=== PATIENT | female | born 2000 | race Caucasian/White ===

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

== ENCOUNTER 2019-12-20 09:56 | Emergency (ER) | payer MEDICAID, SELFPAY ==
[2019-12-20 10:01] VITALS: BP 141/79; PULSE 83; RESP 16; TEMP 36.9; O2SAT 98; BMI 25.0
--- NOTE | 2019-12-20 10:16 | XR_ITS ---
PROCEDURE: XR KNEE RT 3V CLINICAL INDICATION: pain Twisting injury with pain and swelling COMPARISON: No exams were available for comparison FINDINGS: No fracture or dislocation. No lytic or blastic change. There is normal mineralization. The joint spaces are well-preserved. No significant degenerative/arthritic changes. No erosive changes evident. Other findings:Suspect a small suprapatellar effusion. IMPRESSION: Small suprapatellar effusion otherwise negative Dictated by: Elliot Tillman MD 12/20/2019 11:57 Electronically signed by Elliot Tillman MD in [place] 12/20/2019 11:57
--- NOTE | 2019-12-20 10:17 | PC.NURSE ---
notified rad of order, spoke with merrick
--- NOTE | 2019-12-20 11:12 | HMH.EDGENADL ---
ED Disposition Clinical Impression: Lateral collateral ligament sprain of knee Disposition: Home, Self-Care Condition on Discharge: Good Instructions: DI for Acute Pain -- Adult Referrals: Provider,Referral, [Primary Care Provider] - - Critical Care Critical Care Time: No Attestation: On 12/20/19, the high probability of a clinically significant, sudden or life threatening deterioration of the following system(s) required my full and direct attention, intervention and personal management. The time I documented below is in addition to time spent performing reported procedures but includes the following listed in this critical care notation. Medical Decision Making - Medical Records Medical records reviewed: Yes: I reviewed the patient's medical records. - Josafat Inquiry Pt receiving controlled substance: No Vital Signs: 12/20/19 10:01 Temperature 98.4 F Temperature Source Oral Pulse Rate [Right Radial] 83 Respiratory Rate 16 Blood Pressure [Right Arm] 141/79 H Blood Pressure Mean [Right Arm] 99 Blood Pressure Source [Right Arm] Automatic Cuff Blood Pressure Position [Right Arm] Sitting 02 Sat by Pulse Oximetry 98 Oxygen Delivery Method Room Air - Lab Data Lab results reviewed: Yes: I reviewed the patient's lab results. Orders (Tests/Meds): ORDERS Category Date Time Status XR knee RT 3V Stat Exams 12/20/19 10:16 Taken General Adult HPI - General Chief complaint: PAIN Stated complaint: AO [id number] right knee pain Time Seen by Provider: 12/20/19 11:12 Mode of Arrival: Ambulatory Source of Information: Patient Limitations: No Limitations Description of Symptoms (Recalled from ER Triage Doc. by RN): Pt c/o R knee pain, pt reports she twisted her knee approx 1 week ago. Pt reports increasing pain x1 week, reports swelling of R knee today. - History of Present Illness Onset (ago): day(s) Location: lower extremity Radiation: non-radiation Severity: moderate Severity scale (1-10): 3 Quality: stabbing Consistency: constant Relieving factors: cold therapy, rest Exacerbating factors: movement Associated symptoms: denies other symptoms - Related Data Home Medications Medication Instructions Recorded Confirmed albuterol sulfate 90 mcg/actuation 2 puff INHALATION Q6H PRN 09/24/18 09/24/18 aerosol inhaler escitalopram oxalate 10 mg tablet 10 mg PO DAILY 09/24/18 09/24/18 etonogestrel 68 mg subdermal SUBDERMAL each 09/24/18 09/24/18 implant Allergies Allergy/AdvReac Type Severity Reaction Status Date / Time No Known Allergies Allergy Unverified 09/24/18 11:20 [facility] History - Hepatitis A Screen Drug use history?: No High risk sexual behaviors?: No History of sexually transmitted infection?: No Currently employed?: No Childcare worker?: No Do you have indoor plumbing?: Yes Do you have electricity?: Yes Attestation statement:: This patient has been screened for Hepatitis A risk factors. I have reviewed the patient's past medical history: Yes Medical History: Reports:: Asthma Amputation: No Fractures: No - Social History Smoking Status: Current every day smoker Alcohol Intake: never Occupational Status: employed Family Hx:: No significant family history ROS Obtained: Yes All systems reviewed & no additional complaints - Constitutional Constitutional: Reports system reviewed and no additional complaints, except as docu - Eyes Eyes: Reports system reviewed and no additional complaints, except as docu - ENT Ears, Nose, Mouth, and Throat: Reports system reviewed and no additional complaints, except as docu - Cardiovascular Cardiovascular: Reports system reviewed and no additional complaints, except as docu - Respiratory Respiratory: Yes system reviewed and no additional complaints, except as docu - Gastrointestinal Gastrointestingal: Reports: system reviewed and no additional complaints, except as docu - Genitourinary Male Genitourinary
[2019-12-20 11:25] VITALS: BP 122/87; PULSE 87; RESP 20; TEMP 36.8; O2SAT 98
== END 2019-12-20 11:26 | disposition home or self-care (01) ==
PROVIDERS: Emergency Provider Family Medicine
DX: S83.421A Sprain of lateral collateral ligament of right knee, initial encounter (principal); X50.1XXA Overexertion from prolonged static or awkward postures, initial encounter; Y92.019 Unspecified place in single-family (private) house as the place of occurrence of the external cause
CPT/HCPCS: 73562; 99282

== ENCOUNTER 2021-12-11 14:59 | Emergency (ER) | payer OTHER, SELFPAY ==
[2021-12-11 15:01] VITALS: BP 123/65; PULSE 107; RESP 16; TEMP 37.1; O2SAT 98; BMI 18.8
--- NOTE | 2021-12-11 15:25 | PC.NURSE ---
Spoke with [facility] about getting records faxed to us regarding patient's discharge summary, operative report and any scans the patient had while she was at for her procedure on 12/02. Faxed over cover sheet to [facility], awaiting records to be faxed back at this time.
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
--- NOTE | 2021-12-11 17:00 | PC.NURSE ---
patient is in room resting in bed, hooked up to vital signs. Family member is bedside.
[2021-12-11 17:30] VITALS: BP 123/74; PULSE 78; RESP 16; TEMP 36.6; O2SAT 98
== END 2021-12-11 17:32 | disposition home or self-care (01) ==
PROVIDERS: Emergency Provider Student in an Organized Health Care Education/Training Program; PCP Nurse Practitioner
DX: M79.605 Pain in left leg (principal); Z86.718 Personal history of other venous thrombosis and embolism; Z98.890 Other specified postprocedural states; Z79.3 Long term (current) use of hormonal contraceptives; Z79.899 Other long term (current) drug therapy; Z72.0 Tobacco use
CPT/HCPCS: 99282

== ENCOUNTER 2022-01-03 15:00 | Outpatient (RCR) | payer OTHER, SELFPAY | END 2022-02-08 09:23 | disposition home or self-care (01) | LOC: PT.CARL 15:00 | PROVIDERS: PCP Nurse Practitioner; Visit Provider Clinical Nurse Specialist Family Health | DX: Z98.1 Arthrodesis status (principal); M54.6 Pain in thoracic spine | CPT/HCPCS: 97010; 97014; 97110; 97140; 97163; G0283 ==

== ENCOUNTER 2023-09-26 15:46 | Outpatient (CLI) | payer OTHER, SELFPAY ==
[2023-09-26 16:47] LABS: Basophils # 0.1 K/mm3 (0-0.2); Eosinophils # 0.4 K/mm3 (0.0-0.4); Eosinophils % 5.3 % (0.1-12.0); Hematocrit 42.1 % (37.0-47.0); Hemoglobin 13.6 g/dL (12.2-16.2); Lymphocytes # 2.8 K/mm3 (0.7-4.5); Lymphocytes % 33.8 % (10-50); Mean Corpuscular HGB Conc 32.3 g/dL (31.8-35.4); Mean Corpuscular Hemoglobin 31.9 pg (27.0-31.2); Mean Corpuscular Volume 98.8 fl (81-99); Mean Platelet Volume 7.4 fl (7.4-10.4); Monocytes # 0.5 K/mm3 (0.1-1.0); Monocytes % 5.9 % (1.7-9.3); Neutrophils # 4.4 K/mm3 (1.8-7.8); Platelet Count 445 K/mm3 (142-424); Red Blood Count 4.26 M/mm3 (4.20-5.40); Red Cell Distribution Width 13.6 % (11.5-17.5); White Blood Count 8.2 K/mm3 (4.8-10.8)
[2023-09-26 17:24] LABS: Chloride 104 mmol/L (98-107); Potassium 4.4 mmoL/L (3.5-5.1); Sodium 137 mmol/L (136-145)
[2023-09-26 17:26] LABS: Alanine Aminotransferase 11 U/L (12-78); Alkaline Phosphatase 61 U/L (38-126); Anion Gap 8.4 mEq/L (5-15); Aspartate Amino Transferase 22 U/L (14-36); Bilirubin,Direct 0.2 mg/dl (0.0-0.4); Bilirubin,Total 0.2 mg/dl (0.2-1.3); Blood Urea Nitrogen 9 mg/dl (7-17); Carbon Dioxide 29 mmol/L (22.0-30.0); Estimated Glomerular Filt Rate 123 ml/min (>60); GFR (African American) 149 ML/MIN (>60)
[2023-09-26 17:27] LABS: Albumin Level 4.3 g/dl (3.5-5.0); Calcium 9.5 mg/dl (8.4-10.2); Chol/HDL Ratio 2.5 (1-3.5); Cholesterol 105 mg/dl (140-200); Glucose 81 mg/dl (74-100); HDL Cholesterol 42 mg/dl (40-60); Magnesium 2.1 mg/dl (1.6-2.3); Total Protein,Serum 6.6 g/dl (6.3-8.2); Triglycerides 188 mg/dl (30-150); VLDL Cholesterol 38 mg/dL (0-40)
[2023-09-26 17:44] LABS: Direct LDL Cholesterol 45.27 mg/dL (100-129); Free T4 (Free Thyroxine) 0.98 ng/dl (0.78-2.19)
[2023-09-26 17:59] LABS: Thyroid Stimulating Hormone 0.26 uIU/mL (0.465-4.68)
== END 2023-09-26 23:59 ==
LOC: LAB 15:47
PROVIDERS: PCP Nurse Practitioner; Visit Provider Nurse Practitioner
DX: R55 Syncope and collapse (principal); F19.10 Other psychoactive substance abuse, uncomplicated; Z86.79 Personal history of other diseases of the circulatory system; Z79.899 Other long term (current) drug therapy
CPT/HCPCS: 36415; 80048; 80061; 80076; 83735; 84439; 84443; 85025; 93270

== ENCOUNTER 2023-10-06 08:33 | Outpatient (CLI) | payer OTHER, SELFPAY ==
--- NOTE | 2023-10-06 08:37 | CA_ITS ---
APPROVED REPORT EXAM: Comprehensive 2D, Doppler, and color-flow Echocardiogram Ripsaw Matcher: Izabela Haney CRT Ht: 5 ft 6 in Wt: 136lbs BSA: 1.70 BP: 134/70 mmHg Indications: TACHYCARDIA ,Former drug use, smoker, sob,syncope 2D Dimensions LA Volume 18.40 mL LA Volume Index 10.60 mL/m2 (M/F) 16-34 M-Mode Dimensions RVDd 2.50 cm (0.9-2.6) LA Diam 2.81 cm (1.9-4.0) LVDd 4.22 cm (3.5-5.7) LVDs 2.61 cm (3.5-5.7) IVSd 1.13 cm (0.6-1.1) PWd 1.05 cm (0.6-1.1) EF (Teich) 68.80% FS 38.20% EDV (Teich) 79.50 mL TAPSE 1.61 (<1.7) ESV (Teich) 24.80 mL LV Diastology E Decel Time 163 (160-240 msec) E/A Ratio 1.44 MED A' 4.90 cm/s LAT A' 3.60 cm/s Aortic Valve AO Peak GR. 4.00 mmHg Mitral Valve MV E Max Veto. 74.0 (40-130 cm/s) MV A Velocity 51.0 (40-130 cm/s) E/A Ratio 1.44 MV PHT 48.0 ms Pulmonary Valve PV Peak Velocity 90.0 (50-150 cm/s) Tricuspid Valve TR P. Velocity 123.00 cm/s RAP Estimate 10.00 mmHg RVSP 16.10 mmHg Left Ventricle The left ventricle is normal size. The left ventricular systolic function is normal. The left ventricular ejection fraction is within the normal range. There is normal left ventricular wall thickness. There is normal LV segmental wall motion. The left ventricular diastolic function is normal. LVEF is 55%. Right Ventricle The right ventricle is normal size. The right ventricular systolic function is normal. Atria The left atrium size is normal. The right atrium size is normal. There is no Doppler evidence of interatrial shunt. Aortic Valve The aortic valve opens well. There is no aortic valvular stenosis. No aortic regurgitation is present. Mitral Valve The mitral valve is normal in structure. No evidence of mitral valve stenosis. There is no mitral valve regurgitation noted. Tricuspid Valve The tricuspid valve leaflets are thin and pliable. Trace tricuspid regurgitation. There is insufficient TR jet to estimate RVSP. Pulmonic Valve The pulmonary valve is normal in structure. Trace pulmonic regurgitation. Great Vessels The aortic root is normal in size. The ascending aorta is normal in size. IVC is normal in size and collapses >50% with inspiration. Pericardium There is no pericardial effusion. Other Information Study Quality: Fair Conclusion Normal biventricular systolic function. No significant valvular stenosis or regurgitation. Electronically signed by : Allyn Morel MD 10/09/2023 10:18:51
[2023-10-06 09:16] VITALS: BMI 21.7
[2023-10-06] MEDS: IVABRADINE HCL 7.5MG TABLET PO (09:31)
[2023-10-06] MEDS: METOPROLOL TARTRATE 50MG TABLET PO ×2 (09:32→10:32)
[2023-10-06] MEDS: METOPROLOL TARTRATE 25MG TABLET 25 MG (10:32)
--- NOTE | 2023-10-06 10:55 | CT_ITS ---
APPROVED REPORT Rail Express Clerk: CLINICAL INDICATION Chest Pain TECHNIQUE Image Acquisition: A 128 slice MDCT scanner (PDVa View) was used for data acquisition. A noncontrast coronary calcium scan was performed. A CT attenuation threshold of 130 Hounsfield units (HU) was used for the detection of calcium in contiguous voxels of 1 sq mm in area to be counted as individual lesions. Bolus tracking in the ascending aorta with a threshold of 180 HU was performed. Immediately afterwards, ECG synchronized cardiac CT was then performed from the cardiac base to apex using retrospective gating with ECG tube current modulation. A total of 85 mL of Isovue 370 mg/mL contrast medium was administered at 5 mL/sec followed by a saline flush using a biphasic injection protocol. A tube voltage of 120 KVp was used. The patient received the following medications prior to the cardiac CT. 125 mg of oral metoprolol 15 mg of oral ivabradine 0.8 mg of sublingual nitroglycerin The average heart rate at the time of acquisition was 67 bpm and regular. Image Reconstruction Transaxial images were reconstructed at 0.67 mm slide thickness. Data was reviewed interactively on an advanced workstation capable of 2 and 3-dimensional displays in all conventional reconstruction formats, including multiplanar reformations, maximum intensity projections, curved multiplanar reformations, and volume rendered reconstructions. When applicable, selected routine images describing the relevant coronary anatomy and pathology were saved and sent to PACS. Complications None Technical Quality Overall image quality was good. Coronary artery opacification was adequate. Total DLP (Dose-Length Product) is 1351.3 mGy-cm. The reported value represents the total of one or more individual components during the CT acquisition of this date and at this time, and as such, the same value may appear in more than one CT report depending on the interpreting/reporting physicians. COMPARISON None FINDINGS CT Coronary Calcium Scoring LMA (Left Main Artery) = 0 LAD (Left Anterior Descending) = 0 LCX (Left Coronary Circumflex) = 0 RCA (Right Coronary Artery) = 0 Total Calcium Score = 0 using the AJ-130 method. The interpretation of the calcium heart score is based on the following continuum*: 0 = no calcified plaque detected (risk of coronary artery disease is very low ??? less than 5%) 1-10 = calcium detected in extremely minimal levels (risk of coronary diseases is still low ??? less than 10%) 11-100 = mild levels of plaque detected with certainty (mild or minimal narrowing of heart arteries is likely) 101-400 = definite,at least moderate levels of plaque detected (relatively high risk of a heart attack within 3-5 years) >401-999 = extensive levels of plaque detected (high risk of heart attack, high levels of vascular disease are present, high likelihood of at least one significant coronary narrowing) *The calcium heart score quantifies the burden of coronary calcification/plaque in the coronary arteries. The calcium heart score is not able to evaluate the presence or burden of non-calcified (i.e. soft) plaque. There is no identifiable calcification in the aortic valve, mitral annulus or mitral valve, pericardium, or myocardium. Coronary CT Angiography The coronary arterial system is right dominant. Quantitative Stenosis Grading: Left Main (LM): The left main originates normally from the left sinus of Valsalva. The LM bifurcates into the left anterior descending artery and left circumflex artery. The LM is patent with no evidence of atherosclerosis. Left Anterior Descending (LAD) and Diagonal Branches: The LAD gives off 2 diagonal branches. The LAD and its branches are patent with no evidence of atherosclerosis. There is no evidence of LAD-myocardial bridge. Left Circumflex (LCX) and Obtuse Marginals (OM): The LCX gives off 2 Obtuse Marginal (OM) branches. The LCX and its branches are patent with no evidence of atherosclerosis. Right Coronary Artery (RCA): The RCA originates normally from the right sinus of Valsalva. The RCA gives off a posterior descending artery (PDA) and posterolateral (PL) branches. The RCA and its branches are patent with no evidence of atherosclerosis. Non-Coronary Cardiac Findings: Analysis of the left ventricular (LV) structure and function was performed after 3-D reconstruction of the LV from axial images, with user-corrected automatic contouring for assessment of LV volumes and user-defined reconstruction from oblique planes for measurement of 3-D cardiac structure and function. -The left ventricle systolic function is normal. -There is no left atrial appendage filling defect. Two right pulmonary veins and two left pulmonary veins drain normally into the left atrium. -No pericardial thickening or calcification. -Central and branch pulmonary arteries in the [id number] are unremarkable. -Thoracic aorta within the visualized thoracic aortic-branches in the [id number] is unremarkable. Extracardiac Structures Calcified mediastinal lymph nodes are incidentally noted. Correlation with CT chest is suggested. IMPRESSION -No coronary calcification with an Agatston score = 0 using the AJ-130 method. -No evidence of significant flow-limiting atherosclerosis of the coronary arteries. -No evidence of coronary anomalies or myocardial bridges. -CAD-RADS 0. Management recommendations per ACC/AHA guidelines*, as clinically appropriate. -Calcified mediastinal lymph nodes are incidentally noted. Correlation with CT chest is suggested. *Recommendations: CAD RADS 0: Reassurance. Consider non-atherosclerotic causes of chest pain. CAD RADS 1: Consider non-atherosclerotic causes of chest pain. Consider preventive therapy and risk factor modification. CAD RADS 2: Consider non-atherosclerotic causes of chest pain. Consider preventive therapy and risk factor modification, particularly for patients with nonobstructive plaque in multiple segments. CAD RADS 3: Consider further functional testing. Consider symptom-guided anti-ischemic and preventive pharmacotherapy as well as risk factor modification per published guideline statements. CAD RADS 4A: Consider further functional testing or invasive coronary angiography with revascularization per published guideline statements. Consider symptom-guided anti-ischemic and preventive pharmacotherapy as well as risk factor modification per published guideline statements. CAD RADS 4B: Invasive coronary angiography recommended with revascularization per published guideline statements. Consider symptom-guided anti-ischemic and preventive pharmacotherapy as well as risk factor modification per published guideline statements. CAD RADS 5: Consider invasive angiography and/or viability assessment with revascularization per published guideline statements. Consider symptom-guided anti-ischemic and preventive pharmacotherapy as well as risk factor modification per published guideline statements. CRITICAL RESULT None COMMUNICATION Per this written report The coronary and cardiac findings of this CCTA were reviewed, reported, and signed by Daniel Morel MD (Awake Overnight Monitor) Conclusion Electronically signed by : Allyn Morel MD 10/09/2023 11:08:04
[2023-10-06] MEDS: NITROGLYCERIN 0.4MG SL TABLET SL (11:00)
[2023-10-06 11:03] VITALS: BP 117/64; PULSE 60; RESP 16; O2SAT 100
[2023-10-06 11:06] VITALS: BP 106/51; PULSE 60; RESP 16; O2SAT 100
[2023-10-06 11:17] VITALS: BP 96/58; PULSE 68; RESP 16; O2SAT 100
[2023-10-06 11:24] VITALS: BP 127/77; PULSE 65; RESP 16; O2SAT 99
[2023-10-06] MEDS: 0.9 % SODIUM CHLORIDE 50 ML VIAL IV (12:39)
[2023-10-06] MEDS: IOPAMIDOL-370 (76%);100ML BOTTLE 85 ML IV (12:39)
== END 2023-10-06 11:27 | disposition home or self-care (01) ==
LOC: RT 08:34 → RAD 09:26
PROVIDERS: PCP Nurse Practitioner; Visit Provider Nurse Practitioner
DX: R55 Syncope and collapse (principal); R94.31 Abnormal electrocardiogram [ECG] [EKG]; F19.10 Other psychoactive substance abuse, uncomplicated; Z86.79 Personal history of other diseases of the circulatory system
CPT/HCPCS: 75571; 75574; 93306; Q9967